=== PATIENT | male | born 1950 | race Caucasian/White ===

== ENCOUNTER → 2017-05-04 | Outpatient (CLI) | payer MEDICARE, OTHER ==
[~2017-05-04] MED LIST: ASPIRIN 81MG TA81 MG PO; ASPIRIN CHILDRE81 MG PO; BENZONATATE100 MG PO; CRESTOR10 MG PO; DOXAZOSIN 4MG TA4 MG PO; FLOMAX 0.4MG C0.4 MG PO; FOLIC ACID 1MG T1 MG PO; MECLICOT25 MG PO; METOPROLOL 25 M25 MG PO; NABUMETONE500 M1 PO; PERCOCET 10 MG1 EACH PO; PERCOCET 5/3251 EACH PO; RELAFEN500 MG PO; TOPROL XL50 MG PO; TREXALL10 MG PO; UROXATRAL10 MG PO
[2017-05-04 17:10] LABS: BUN 16 mg/dL (7-18); PROSTATE-SPECIFIC AG SCREEEN 1.7 ng/mL (0.0-4.0)
[2017-05-04 17:58] LABS: GFR (ESTIMATED) 75 ML/MIN (>60)
== END ==
LOC: LAB 13:10
PROVIDERS: Urology
DX: R31.9 Hematuria, unspecified (principal); N40.0 Benign prostatic hyperplasia without lower urinary tract symptoms; Z12.5 Encounter for screening for malignant neoplasm of prostate
CPT/HCPCS: G0103

== ENCOUNTER → 2017-06-29 | Outpatient (CLI) | payer MEDICARE, OTHER ==
[2017-06-29 17:03] LABS: BUN 16 mg/dL (7-18)
[2017-06-29 17:06] LABS: GFR (ESTIMATED) 67 ML/MIN (>60)
[2017-06-29 18:20] LABS: HEMOGLOBIN 14.4 g/dL (14.1-18.0)
[2017-06-29 18:21] LABS: LYMPH # 0.9 K/mm3 (0.7-4.5); LYMPH % 11.6 % (10-50)
--- NOTE | 2017-06-29 21:22 | RADIOLOGY REPORT PS360 ---
CHEST(2 VIEWS-NOT PORTABLE) COMPARISON: PA and lateral chest 12/09/2015 HISTORY: Fever chills, wheezing, immunosuppressed TECHNIQUE: PA and lateral chest FINDINGS: The lung mcclain are well expanded and appear clear of active infiltrate. There is no pleural fluid. There are sternal wire sutures noted. There is borderline cardio megaly without failure. There are mild degenerative changes of the lower thoracic spine. IMPRESSION: Nonacute chest findings
== END ==
LOC: LAB 16:30
PROVIDERS: Nurse Practitioner Family
DX: R50.9 Fever, unspecified (principal); D89.9 Disorder involving the immune mechanism, unspecified

== ENCOUNTER 2017-06-30 09:33 | Inpatient (IN) | payer MEDICARE, OTHER ==
[~2017-06-30] VITALS: Ht 182.9 cm; Wt 113.5 kg
[2017-06-30 12:45] LABS: HEMOGLOBIN 14.2 g/dL (14.1-18.0); LYMPH # 1.6 K/mm3 (0.7-4.5); LYMPH % 17.2 % (10-50)
[2017-06-30 12:47] LABS: BUN 17 mg/dL (7-18)
[2017-06-30] MEDS ORDERED: PERCOCET 10 MG1 EACH PO (12:49)
[2017-06-30] MEDS ORDERED: ZYRTEC ALLERGY10 MG PO (12:53)
[2017-06-30 12:55] LABS: GFR (ESTIMATED) 75 ML/MIN (>60)
--- NOTE | 2017-06-30 12:56 | CONSULT NOTE ---
Pharmacokinetic Consult Date of consult: 06/30/17 Time of consult: 8551 Referring provider: DR. MARTELL Reason for consult: VANCOMYCIN DOSING Allergies: Coded Allergies: Sulfa (Sulfonamide Antibiotics) (Mild, 01/16/16) Home Medications: Reported Medications FOLIC ACID (Folic Acid) 1 MG PO DAILY Metoprolol Tartrate (Metoprolol 25MG) 50 MG PO BID NABUMETONE (NABUMETONE 500MG TAB) 1,000 MG PO DAILY TAMSULOSIN HCL (Flomax 0.4MG) 0.4 MG PO BID Oxycodone 10 Mg\Jwdrdgbdrc902 (Oxycodone-Acetaminophen 10-325) 1 TAB PO BIDP PRN PAIN Cetirizine Hcl (Zyrtec) 10 MG PO DAILY Rosuvastatin Calcium (Crestor) 10 MG PO QHS Methotrexate Sodium (Trexall) 25 MG PO SUN ASPIRIN (Aspirin) 81 MG PO DAILY Height (feet): 6 Height (inches): 0.00 Medical History: CAD? No Angina: Yes [place]: No Hypertension? Yes Hyperlipidemia? Yes CHF? No COPD? No Asthma? No Anemia? No Hernia? No Thyroid Problems? No Hypothyroidism? No CVA? No Seizures? No Diabetes? No UTI? No Stones? Yes GB Disease: Yes Nephritic Syndrome? No Asplenia? No Hepatitis? No Sickle Cell Disease? No Arthritis? Yes Cataracts? No Glaucoma? No MRSA? No TB? No Cancer? No Labs: Laboratory Tests 06/30/17 1230: WBC 9.5, RBC 4.54 L, Hgb 14.2, Hct 43.2, MCV 95.1, RDW 13.4, Plt Count 268, MPV 7.9, Gran % 74.1, Gran # 7.0, Lymphocytes % 17.2, Monocytes % 7.4, Eosinophils % 0.8, Basophils % 0.6, Lymphocytes # 1.6, Monocytes # 0.7, Eosinophils # 0.1, Basophils # 0.1, PUBS MCHC 32.9, MCH 31.3 H Plan: BASED ON PATIENT FACTORS, RECOMMEND INITIATING VANCOMYCIN AT 2,000MG IV Q18H. PHARMACY WILL OBTAIN A TROUGH LEVEL PRIOR TO THE FOURTH DOSE. at 0892
--- NOTE | 2017-06-30 12:56 | CONSULT NOTE ---
Pharmacokinetic Consult Date of consult: 06/30/17 Time of consult: 7672 Referring provider: DR. MARTELL Reason for consult: VANCOMYCIN DOSING Allergies: Coded Allergies: Sulfa (Sulfonamide Antibiotics) (Mild, 01/16/16) Home Medications: Reported Medications FOLIC ACID (Folic Acid) 1 MG PO DAILY Metoprolol Tartrate (Metoprolol 25MG) 50 MG PO BID NABUMETONE (NABUMETONE 500MG TAB) 1,000 MG PO DAILY TAMSULOSIN HCL (Flomax 0.4MG) 0.4 MG PO BID Oxycodone 10 Mg\Jzgcvusekd054 (Oxycodone-Acetaminophen 10-325) 1 TAB PO BIDP PRN PAIN Cetirizine Hcl (Zyrtec) 10 MG PO DAILY Rosuvastatin Calcium (Crestor) 10 MG PO QHS Methotrexate Sodium (Trexall) 25 MG PO SUN ASPIRIN (Aspirin) 81 MG PO DAILY Height (feet): 6 Height (inches): 0.00 Medical History: CAD? No Angina: Yes [place]: No Hypertension? Yes Hyperlipidemia? Yes CHF? No COPD? No Asthma? No Anemia? No Hernia? No Thyroid Problems? No Hypothyroidism? No CVA? No Seizures? No Diabetes? No UTI? No Stones? Yes GB Disease: Yes Nephritic Syndrome? No Asplenia? No Hepatitis? No Sickle Cell Disease? No Arthritis? Yes Cataracts? No Glaucoma? No MRSA? No TB? No Cancer? No Labs: Laboratory Tests 06/30/17 1230: WBC 9.5, RBC 4.54 L, Hgb 14.2, Hct 43.2, MCV 95.1, RDW 13.4, Plt Count 268, MPV 7.9, Gran % 74.1, Gran # 7.0, Lymphocytes % 17.2, Monocytes % 7.4, Eosinophils % 0.8, Basophils % 0.6, Lymphocytes # 1.6, Monocytes # 0.7, Eosinophils # 0.1, Basophils # 0.1, PUBS MCHC 32.9, MCH 31.3 H Plan: BASED ON PATIENT FACTORS, RECOMMEND INITIATING VANCOMYCIN AT 2,000MG IV Q18H. PHARMACY WILL OBTAIN A TROUGH LEVEL PRIOR TO THE FOURTH DOSE. at 7344
[2017-06-30 12:57] VITALS: BP 122/73
[2017-06-30 13:14] VITALS: BP 122/73
[2017-06-30 14:10] LABS: URINE BLOOD NEGATIVE (NEG)
[2017-06-30 14:20] LABS: URINE BILIRUBIN - DIPSTICK NEGATIVE (NEG)
[2017-06-30 14:21] LABS: URINE SQUAMOUS CELLS OCC #/hpf (OCC)
[2017-06-30 16:32] VITALS: BP 136/71
[2017-06-30 19:40] VITALS: BP 136/71
[2017-06-30 20:00] VITALS: BP 128/68
--- NOTE | 2017-06-30 21:49 | HISTORY AND PHYSICAL REPORT ---
Demographics: Admit date: 06/30/17 Chief complaint: Fevers PRIMARY DIAGNOSIS: BACTREMIA Allergies: Coded Allergies: Sulfa (Sulfonamide Antibiotics) (Mild, 01/16/16) History of present illness: History of present illness: 66 yr old male seen yesterday in our clinic with c/o recurring fevers over the past 7-10 days. Typically during the night, Tmax 102.7. He feels fatigued with general malaise during fevers and c/o rhinorrhea consistent with his usual allergy symptoms but otherwise without acute symptoms. Recent history also notable for cystoscopy about [address] Briscoe, initially planned due to nephrolithiasis but stones had already passed prior to procedure. CXR and blood work were obtained due to fevers and immunosuppression on chronic methotrexate therapy for psoriasis. This morning blood cultures are preliminarily positive for enterococcus and he is admitted to initiate IV antibiotics and additional workup. Past medical history: Family HX Diabetes Yes CAD Yes Hypertension Yes Hyperlipidemia Yes Cancer Yes TB No Immunization HX DT/Tetanus > 10 YRS Flu 06/16/17 Pneumonia 2016 Other REACTIVE TB TEST TB Test in last year No General CAD? Yes Angina: Yes [place]: No Hypertension? Yes Hyperlipidemia? Yes CHF? No COPD? No Asthma? No Anemia? No Hernia? No Thyroid Problems? No Hypothyroidism? No CVA? No Seizures? No Diabetes? No UTI? No Stones? Yes GB Disease: Yes Nephritic Syndrome? No Asplenia? No Hepatitis? No Sickle Cell Disease? No Arthritis? Yes Cataracts? No Glaucoma? No MRSA? No TB? No Cancer? No Additional hx: chronic pain. psoriasis on chronic MTX therapy Past Surgical HX Previous Surgery?Y CABG X3 R KNEE SURGERY GALLBLADDER REMOVED [facility] C[facility] 12/2014 Current home meds: Reported Medications FOLIC ACID (Folic Acid) 1 MG PO DAILY Metoprolol Tartrate (Metoprolol 25MG) 50 MG PO BID NABUMETONE (NABUMETONE 500MG TAB) 1,000 MG PO DAILY TAMSULOSIN HCL (Flomax 0.4MG) 0.4 MG PO BID Oxycodone 10 Mg\Pyjmwirsqb002 (Oxycodone-Acetaminophen 10-325) 1 TAB PO BIDP PRN PAIN Cetirizine Hcl (Zyrtec) 10 MG PO DAILY Rosuvastatin Calcium (Crestor) 10 MG PO QHS Methotrexate Sodium (Trexall) 25 MG PO SUN ASPIRIN (Aspirin) 81 MG PO DAILY Social Hx: Smoking HX Tobacco No Alcohol Alcohol: No Hx of Drug Use Drug Use? No Patien't marital status is Patient's support system is excellent Review of systems: Constitutional fever, malaise. Eyes No: no symptoms reported. Ears, Nose, Mouth, Throat nose congestion, No throat pain, No throat swelling Respiratory cough (occasional). No: shortness of breath, wheezing. Cardiovascular No no symptoms reported Gastrointestinal/Abdominal No no symptoms reported Genitourinary see HPI. No: dysuria, frequency. Musculoskeletal back pain (chronic, on narcotics). Skin rash (psoriasis). Neurological No: no symptoms reported. Psychiatric No: no symptoms reported. Exam: Lab data for last 24 hours: Laboratory Tests 06/30/17 1330: Urine Color DK YELLOW, Urine Appearance SL CLOUDY, Urine pH 5.5, Ur Specific [place] >= 1.030, Urine Protein 1+ H, Urine Ketones TRACE H, Urine Blood NEGATIVE, Urine Nitrate NEGATIVE, Urine Bilirubin NEGATIVE, Urine Urobilinogen 4.0, Ur Leukocyte Esterase NEGATIVE, Urine RBC NONE, Urine WBC NONE, Ur Squamous Epith Cells OCC, Urine Bacteria OCC, Urine Mucus 4+, Urine Glucose NEGATIVE 06/30/17 1230: Sodium 138, Potassium 4.1, Chloride 105, Carbon Dioxide 26, BUN 17, Creatinine 1.0, Estimated GFR (MDRD) 75, Glucose 104, Calcium 9.0, WBC 9.5, RBC 4.54 L, Hgb 14.2, Hct 43.2, MCV 95.1, RDW 13.4, Plt Count 268, MPV 7.9, Gran % 74.1, Gran # 7.0, Lymphocytes % 17.2, Monocytes % 7.4, Eosinophils % 0.8, Basophils % 0.6, Lymphocytes # 1.6, Monocytes # 0.7, Eosinophils # 0.1, Basophils # 0.1, PUBS MCHC 32.9, MCH 31.3 H Microbiology 06/30 1330 URINE CC: Urine Culture - RECD Admission vital signs: 1ST Vital Signs Result Date Time Pulse Ox 97 06/30 1257 O2 Delivery ROOM AIR 06/30 1257 B/P 122/73 06/30 1257 Temp 97.8 06/30 1257 Pulse 63 06/30 1257 Resp 22 06/30 1257 Additional information: Pleasant male in NAD. Neck supple without masses, mild nasal congestion with clear rhinorrhea, POP and TMs normal. Heart with RRR. Lungs with expiratory wheeze in the right base, no rales or rhonchi. Abdomen obese, soft, NT/ND, BS present, no CVA tenderness. No edema. Psoriatic plaques noted. Alert and oriented x 3 without deficits. Plan: Problem List 1. Bacteremia due to Enterococcus Assessment/Plan Most likely secondary to recent bladder instumentation and nephrolithiasis. UA with culture today. Initiate therapy with vancomycin and ceftriaxone until sensitivities available. CXR negative for acute findings. CBC and CMP unremarkable. Echo given his + blood cultures, CABG history and immunosuppressed state. 2. Immunosuppressed status 3. Fever 4. Ureteral calculus, left Plan: see above at 6332
[2017-07-01 04:08] VITALS: BP 124/56
[2017-07-01 06:55] LABS: HEMOGLOBIN 12.8 g/dL (14.1-18.0); LYMPH # 1.7 K/mm3 (0.7-4.5); LYMPH % 19.1 % (10-50)
--- NOTE | 2017-07-01 07:17 | PHARMACY CLINIC NOTE ---
Patient Demographics Patient Demographics Admission date: 06/30/17 Date: 07/01/17 Time: 0716 Allergies Coded Allergies: Sulfa (Sulfonamide Antibiotics) (Mild, 01/16/16) HEIGHT- FT: 6 IN: 0.00 K.541 VTE General Information Labs: Laboratory Tests 07/0115 1230 Hematology Hgb (14.1 - 18.0 g/dL) 12.8 L 14.2 Hct (42.0 - 52.0 %) 38.0 L 43.2 Plt Count (142 - 424 K/mm3) 245 268 Disclaimer The following section includes nursing documentation that has been pulled in for pharmacy review. Patient's VTE score: 2 Patient's VTE Risk: VERY LOW RISK Clinical trial participant? No VTE prophylaxis NQF [id number] VTE prophylaxis ordered? Yes Type of prophylaxis/treatment: DON at 0716
[2017-07-01 08:10] VITALS: BP 133/62
--- NOTE | 2017-07-01 08:45 | ACUTE CARE PROGRESS NOTE (QUA) ---
Progress Notes Subjective Date 07/01/17 Time 0745 Note Patient is sitting up in the chair without any complaints this morning. No fevers through the night. He denies any urinary symptoms. Alert and oriented 3. Rate and rhythm regular. No lower extremity edema. Pulses 2+ bilaterally. Lung sounds clear and equal throughout. Abdomen soft and nontender, normoactive bowel sounds. No CVA tenderness Patient/family reports: feeling better Nursing reports: no complaints Objective Findings Last VS-Temp:98.1 B/P:133/62 Pulse:68 Resp:18 SaO2:95 ROOM AIR Last weight lbs:250 oz:5 K.541 Method:Bed Scales Reviewed: medications, vital signs, lab results Assessment/Plan Problem List 1. Bacteremia due to Enterococcus 2. Immunosuppressed status 3. Fever 4. Ureteral calculus, left Patient condition Improving Plan: continue current care This inpt stay is expected to cross 2 MNs from start of care Yes Comments: Place PICC line today. Continue IV Vancomycin and Rocephin pending sensitivity. at 0845
[2017-07-01 09:22] VITALS: BP 133/62
--- NOTE | 2017-07-01 14:52 | RADIOLOGY REPORT PS360 ---
CHEST PORTABLE-P ICC PLACEMENT COMPARISON: PA and lateral chest 06/29/2017 HISTORY: PICC line placement TECHNIQUE: Portable upright chest FINDINGS: The PICC line is seen ascending the left axillary vein and left subclavian vein and the tip is at the junction of the innominate vein with superior vena cava. There is no pneumothorax. Stable generalized cardio megaly is again noted. IMPRESSION: Aspect. Position of PICC line
[2017-07-01 16:15] VITALS: BP 137/70
--- NOTE | 2017-07-01 16:44 | RADIOLOGY REPORT PS360 ---
PROCEDURE: 2-D M-mode and color Doppler study INDICATIONS FOR THE TEST: Chest pain COPD Heart Murmur Tobacco Smoking Palpitations Fatigue Syncope Edema Hypertension+Diabetes Mellitus+ Rheumatic Fever SOB+GRAMAJO Obesity Hyperlipidemia+ Family History HD Additional History CABG 2005 X3 PATIENT INFORMATION HEIGHT:72 WEIGHT:260 GENDER: Male B/P:140/82 2-D/M-MODE INTERPRETATION: 2-D MEASUREMENTS OBSERVED VALUES IN CMS Right Ventricular Dimension (RVDd) 3.5 Interventricular Septum (Thickness)(IVsd) 1.4 Left Ventricular Internal Dimensions(LVIDd) 5.2 Left Ventricular Posterior Wall (Thickness)(LVPWd) 1.1 Aortic Root 3.4 Aortic Cusp Separation 2.4 Left Atrial Dimensions (LAD) 4.2 2D 1. Technically difficult study because of the patient's factor and poor acoustic windows, endocardial surface of poorly visualized, a repeat study with Definity contrast is recommended. 2. Left atrium is mildly enlarged, left ventricle is normal size, mild concentric left ventricular hypertrophy, visually estimated ejection fraction is probably 45%, endocardial surface are poorly visualized, there appears to be hypokinesis involving mid to distal septum and apical wall. 3. The right atrium is mildly enlarged, right ventricle is moderately dilated with normal contractility. 4. The aortic valve is minimally thickened and fibrosed. 5. The mitral and tricuspid valve leaflets are minimally thickened. 6. The pulmonic valve is poorly visualized. 7. No significant pericardial effusion noted. DOPPLER INTERROGATION: Doppler interrogation of the aortic, mitral and tricuspid valve reveals presence of mild mitral and tricuspid regurgitation, tricuspid and jet velocity insufficient for calculation of the right ventricular systolic pressure, grade 1 diastolic dysfunction seen with tissue Doppler evidence of raised left atrial pressure. CONCLUSION: 1. Biatrial enlargement, normal left ventricular size, mild concentric left ventricular hypertrophy, visually estimated ejection fraction 45% with segmental wall motion abnormality described above, endocardial surface of poorly visualized, a repeat study with Definity contrast is recommended. Grade 1 diastolic dysfunction seen with tissue Doppler evidence of raised left atrial pressure. 2. Moderately enlarged right ventricle with normal contractility. 3. Mild mitral and tricuspid regurgitation. 4. No significant pericardial effusion noted
[2017-07-01 20:30] VITALS: BP 158/77
[2017-07-02 04:01] VITALS: BP 126/79
--- NOTE | 2017-07-02 07:27 | DISCHARGE SUMMARY STANDARD ---
Demographics Admit date: 06/30/17 Discharge date: 07/02/17 History of present illness History of present illness 66 yr old male seen yesterday in our clinic with c/o recurring fevers over the past 7-10 days. Typically during the night, Tmax 102.7. He feels fatigued with general malaise during fevers and c/o rhinorrhea consistent with his usual allergy symptoms but otherwise without acute symptoms. Recent history also notable for cystoscopy about [address] Briscoe, initially planned due to nephrolithiasis but stones had already passed prior to procedure. CXR and blood work were obtained due to fevers and immunosuppression on chronic methotrexate therapy for psoriasis. This morning blood cultures are preliminarily positive for enterococcus and he is admitted to initiate IV antibiotics and additional workup. Hospital Course Hospital Course: Patient was admitted, did very nicely. Blood cultures showed enterococcus. We waited sensitivity panels which, fortunately, showed good sensitivity to vancomycin. Patient had a PICC line placed in the LEFT antecubital fossa with good placement confirmed by chest x-ray. Interestingly urine culture also showed greater than 100,000 colonies of gram- positive cocci-this would seem to be the source of the sepsis, but sensitivity panels are pending for this organism. The patient did very nicely with his antibiotics. Defervesced. This morning is doing fine, eating breakfast vigorously. Lungs are clear, heart rate regular, no edema. He will be discharged home with his daily orders to come back to her infusion department for vancomycin 2.5 g daily through July 14. We will see him the following day for reevaluation. Discharge diagnoses Problem List 1. Bacteremia due to Enterococcus 2. Immunosuppressed status 3. Fever 4. Ureteral calculus, left Medications Medications: Discharge meds are as noted. Follow up Follow up in office in: 12 DAYS with: Chante Sahu APRN at 6900
[2017-07-02] MEDS ORDERED: AMERINET CHOICE1 G1 IV (07:28)
[2017-07-02 08:40] VITALS: BP 145/78
[2017-07-02 08:47] VITALS: BP 145/78
[2017-07-02 10:10] VITALS: BP 145/78
[2017-07-02 10:12] VITALS: BP 145/78
--- OUTSIDE RECORDS SUMMARY | 2017-07-08 13:58 | External Medical Summary Rpt | CCD ---
Author Author [employer] Organization [employer] Address Unknown Phone Unavailable Purpose Continuity of Care Document - through 2016
--- OUTSIDE RECORDS SUMMARY | 2017-07-08 13:58 | External Medical Summary Rpt ---
Author Author NURIA Corbin, [employer] Organization [employer] Address Unknown Phone Unavailable Results Basic metabolic panel in Blood Observa Value Referen Units Interpr Notes Date tion ce etation Range Urea 7 - 18 mg/dL Normal No Oct 5 nitrogen informati 2017 6:15 [Mass/vol on in AM ume] in source Serum or data Plasma Calcium 8.5 - mg/dL Normal No Oct 5 [Mass/vol 10.1 informati 2017 6:15 ume] in on in AM Serum or source Plasma data Chloride 98 - 107 mmoL/L Normal No Oct 5 [Moles/vo informati 2017 6:15 lume] in on in AM Serum or source Plasma data Carbon 21.0 - mmoL/L Normal No Oct 5 dioxide, 32.0 informati 2017 6:15 total on in AM [Moles/vo source lume] in data Serum or Plasma Creatinin 0.70 - mg/dL Normal No Oct 5 e 1.30 informati 2017 6:15 [Mass/vol on in AM ume] in source Serum or data Plasma Creatinin 50 - 200 ML/MIN Normal No Oct 5 e renal informati 2017 6:15 clearance on in AM source predicted data by Cockcroft -Gault formula Estimated >60 ML/MIN No REFERENCE Oct 5 informati RANGE: 2017 6:15 glomerula on in >60 AM r source ML/MIN/1. filtratio data 73 SQUARE n rate METERSIf (GF this patient is -A merican, then multiply theresult by 1.210. Glucose 74 - 106 mg/dL High No Oct 5 [Mass/vol informati 2017 6:15 ume] in on in AM Serum or source Plasma data Potassium 3.5 - 5.1 mmoL/L Normal No Oct 5 informati 2017 6:15 [Moles/vo on in AM lume] in source Serum or data Plasma Sodium 136 - 145 mmoL/L Normal No Oct 5 [Moles/vo informati 2017 6:15 lume] in on in AM Serum or source Plasma data CBC W Auto Differential panel in Blood Observa Value Referen Units Interpr Notes Date tion ce etation Range Basophils 0 - 0.2 K/MM3 Normal No Jul 01 informati 2016 6:15 [#/volume on in AM ] in source Blood by data Automated count Basophils 0.1 - 2.0 % Normal No Jul 01 /100 informati 2016 6:15 leukocyte on in AM s in source Blood by data Automated count Eosinophi 0.0 - 0.4 K/mm3 Normal No Jul 01 ls informati 2016 6:15 [#/volume on in AM ] in source Blood by data Automated count Eosinophi 0.1 - % Normal No Jul 01 ls/100 12.0 informati 2016 6:15 leukocyte on in AM s in source Blood by data Automated count Granulocy 1.3 - 8.0 K/mm3 Normal No Jul 01 cruz informati 2016 6:15 [#/volume on in AM ] in source Blood by data Automated count Granulocy 37.0 - % Normal No Jul 01 cruz/100 80.0 informati 2016 6:15 leukocyte on in AM s in source Blood by data Automated count Hematocri 42.0 - % Low No Jul 01 t [Volume 52.0 informati 2016 6:15 on in AM Fraction] source of Blood data Hemoglobi 14.1 - g/dL Low No Jul 01 n 18.0 informati 2016 6:15 [Mass/vol on in AM ume] in source Blood data Lymphocyt 0.7 - 4.5 K/mm3 Normal No Jul 01 es informati 2016 6:15 [#/volume on in AM ] in source Unspecifi data ed specimen by Automated count Lymphocyt 10 - 50 % Normal No Jul 01 es informati 2016 6:15 [#/volume on in AM ] in source Unspecifi data ed specimen by Automated count Erythrocy 27 - 31.2 pg Normal No Jul 01 te mean informati 2016 6:15 corpuscul on in AM ar source hemoglobi data n [Entitic mass] Erythrocy 31.8 - g/dl Normal No Jul 01 te mean 35.4 informati 2016 6:15 corpuscul on in AM ar source hemoglobi data n concentra tion [Mass/vol ume] by Automated count Erythrocy 82.2 - fl Normal No Jul 01 te mean 97.8 informati 2016 6:15 corpuscul on in AM ar volume source [Entitic data volume] by Automated count Monocytes 0.1 - 1.0 K/mm3 Normal No Jun 5 informati 2016 6:15 [#/volume on in AM ] in source Blood by data Automated count Monocytes 1.7 - 9.3 % Normal No Oct 5 /100 informati 2016 6:15 leukocyte on in AM s in source Blood by data Automated count Platelet 7.4 - fl Normal No Jun 5 mean 10.4 informati 2016 6:15 volume on in AM [Entitic source volume] data in Blood by Automated count Platelets 142 - 424 K/mm3 Normal No Jun 5 informati 2016 6:15 [#/volume on in AM ] in source Blood data Erythrocy 4.6 - 6.2 M/mm3 Low No Jun 5 cruz informati 2016 6:15 [#/volume on in AM ] in source Amniotic data fluid Erythrocy 11.5 - % Normal No Jun 5 te 17.5 informati 2016 6:15 distribut on in AM ion width source [Entitic data volume] by Automated count Leukocyte 4.8 - K/MM3 Normal No Jun 5 s 10.8 informati 2016 6:15 [#/volume on in AM ] in source Blood data Basic metabolic panel in Blood Observa Value Referen Units Interpr Notes Date tion ce etation Range Urea 7 - 18 mg/dL Normal No Jun 4 nitrogen informati 2016 [Mass/vol on in 12:30 PM ume] in source Serum or data Plasma Calcium 8.5 - mg/dL Normal No Jun 4 [Mass/vol 10.1 informati 2016 ume] in on in 12:30 PM Serum or source Plasma data Chloride 98 - 107 mmoL/L Normal No Jun 4 [Moles/vo informati 2017 lume] in on in 12:30 PM Serum or source Plasma data Carbon 21.0 - mmoL/L Normal No Jun 4 dioxide, 32.0 informati 2016 total on in 12:30 PM [Moles/vo source lume] in data Serum or Plasma Creatinin 0.70 - mg/dL Normal No Jun 4 e 1.30 informati 2016 [Mass/vol on in 12:30 PM ume] in source Serum or data Plasma Estimated >60 ML/MIN No REFERENCE Oct 4 informati RANGE: 2017 glomerula on in >60 12:30 PM r source ML/MIN/1. filtratio data 73 SQUARE n rate METERSIf (GF this patient is -A merican, then multiply theresult by 1.210. Glucose 74 - 106 mg/dL Normal No Jun 30 [Mass/vol informati 2016 ume] in on in 12:30 PM Serum or source Plasma data Potassium 3.5 - 5.1 mmoL/L Normal No Jun 30 inform2016 [Moles/vo on in 12:30 PM lume] in source Serum or data Plasma Sodium 136 - 145 mmoL/L Normal No Jun 30 [Moles/vo informati 2016 lume] in on in 12:30 PM Serum or source Plasma data CBC W Auto Differential panel in Blood Observa Value Referen Units Interpr Notes Date tion ce etation Range Basophils 0 - 0.2 K/MM3 Normal No Jun 302016 [#/volume on in 12:30 PM ] in source Blood by data Automated count Basophils 0.1 - 2.0 % Normal No Jun 30 /2016 leukocyte on in 12:30 PM s in source Blood by data Automated count Eosinophi 0.0 - 0.4 K/mm3 Normal No Jun 30 ls 2016 [#/volume on in 12:30 PM ] in source Blood by data Automated count Eosinophi 0.1 - % Normal No Jun 30 ls/100 12.0 inform2016 leukocyte on in 12:30 PM s in source Blood by data Automated count Granulocy 1.3 - 8.0 K/mm3 Normal No Jun 30 cruz inform2016 [#/volume on in 12:30 PM ] in source Blood by data Automated count Granulocy 37.0 - % Normal No Jun 30 cruz/100 80.0 inform2016 leukocyte on in 12:30 PM s in source Blood by data Automated count Hematocri 42.0 - % Normal No Jun 30 t [Volume 52.0 ati 2016 on in 12:30 PM Fraction] source of Blood data Hemoglobi 14.1 - g/dL Normal No Jun 30 n 18.0 inform2016 [Mass/vol on in 12:30 PM ume] in source Blood data Lymphocyt 0.7 - 4.5 K/mm3 Normal No Jun 30 es inform2016 [#/volume on in 12:30 PM ] in source Unspecifi data ed specimen by Automated count Lymphocyt 10 - 50 % Normal No Jun 30 es 2016 [#/volume on in 12:30 PM ] in source Unspecifi data ed specimen by Automated count Erythrocy 27 - 31.2 pg High No Jun 30 te mean 2016 corpuscul on in 12:30 PM ar source hemoglobi data n [Entitic mass] Erythrocy 31.8 - g/dl Normal No Jun 30 te mean 35.4 2016 corpuscul on in 12:30 PM ar source hemoglobi data n concentra tion [Mass/vol ume] by Automated count Erythrocy 82.2 - fl Normal No Jun 30 te mean 97.8 2016 corpuscul on in 12:30 PM ar volume source [Entitic data volume] by Automated count Monocytes 0.1 - 1.0 K/mm3 Normal No Jun 302016 [#/volume on in 12:30 PM ] in source Blood by data Automated count Monocytes 1.7 - 9.3 % Normal No Jun 302016 leukocyte on in 12:30 PM s in source Blood by data Automated count Platelet 7.4 - fl Normal No Jun 30 mean 10.4 2016 volume on in 12:30 PM [Entitic source volume] data in Blood by Automated count Platelets 142 - 424 K/mm3 Normal No Jun 302016 [#/volume on in 12:30 PM ] in source Blood data Erythrocy 4.6 - 6.2 M/mm3 Low No Jun 30 cruz 2016 [#/volume on in 12:30 PM ] in source Amniotic data fluid Erythrocy 11.5 - % Normal No Jun 30 te 17.5 2016 distribut on in 12:30 PM ion width source [Entitic data volume] by Automated count Leukocyte 4.8 - K/MM3 Normal No Jun 30 s 10.8 2016 [#/volume on in 12:30 PM ] in source Blood data CBC W Auto Differential panel in Blood Observa Value Referen Units Interpr Notes Date tion ce etation Range Basophils 0 - 0.2 K/MM3 Normal No Jun 3 2016 4:32 [#/volume on in PM ] in source Blood by data Automated count Basophils 0.1 - 2.0 % Normal No Jun 29 /100 inform2016 4:32 leukocyte on in PM s in source Blood by data Automated count Eosinophi 0.0 - 0.4 K/mm3 Normal No Jun 3 ls informati 2016 4:32 [#/volume on in PM ] in source Blood by data Automated count Eosinophi 0.1 - % Normal No Jun 3 ls/100 12.0 informati 2016 4:32 leukocyte on in PM s in source Blood by data Automated count Granulocy 1.3 - 8.0 K/mm3 Normal No Jun 3 cruz informati 2016 4:32 [#/volume on in PM ] in source Blood by data Automated count Granulocy 37.0 - % High No Jun 29 cruz/100 80.0 informati 2016 4:32 leukocyte on in PM s in source Blood by data Automated count Hematocri 42.0 - % Normal No Jun 29 t [Volume 52.0 informati 2016 4:32 on in PM Fraction] source of Blood data Hemoglobi 14.1 - g/dL Normal No Jun 3 n 18.0 informati 2016 4:32 [Mass/vol on in PM ume] in source Blood data Lymphocyt 0.7 - 4.5 K/mm3 Normal No Jun 29 es informati 2016 4:32 [#/volume on in PM ] in source Unspecifi data ed specimen by Automated count Lymphocyt 10 - 50 % Normal No Jun 29 es informati 2016 4:32 [#/volume on in PM ] in source Unspecifi data ed specimen by Automated count Erythrocy 27 - 31.2 pg Normal No Jun 29 te mean informati 2016 4:32 corpuscul on in PM ar source hemoglobi data n [Entitic mass] Erythrocy 31.8 - g/dl Low No Jun 29 te mean 35.4 informati 2016 4:32 corpuscul on in PM ar source hemoglobi data n concentra tion [Mass/vol ume] by Automated count Erythrocy 82.2 - fl Normal No Jun 29 te mean 97.8 informati 2016 4:32 corpuscul on in PM ar volume source [Entitic data volume] by Automated count Monocytes 0.1 - 1.0 K/mm3 Normal No Jun 3 informati 2016 4:32 [#/volume on in PM ] in source Blood by data Automated count Monocytes 1.7 - 9.3 % Normal No Jun 3 /100 informati 2016 4:32 leukocyte on in PM s in source Blood by data Automated count Platelet 7.4 - fl Normal No Jun 3 mean 10.4 informati 2017 4:32 volume on in PM [Entitic source volume] data in Blood by Automated count Platelets 142 - 424 K/mm3 Normal No Oct 3 informati 2016 4:32 [#/volume on in PM ] in source Blood data Erythrocy 4.6 - 6.2 M/mm3 Normal No Oct 3 cruz informati 2016 4:32 [#/volume on in PM ] in source Amniotic data fluid Erythrocy 11.5 - % Normal No Oct 3 te 17.5 informati 2016 4:32 distribut on in PM ion width source [Entitic data volume] by Automated count Leukocyte 4.8 - K/MM3 Normal No Oct 3 s 10.8 informati 2017 4:32 [#/volume on in PM ] in source Blood data Comprehensive metabolic 2000 panel in Serum or Plasma Observa Value Referen Units Interpr Notes Date tion ce etation Range Albumin/G 1.1 - 1.8 No Low No Oct 3 lobulin informati informati 2017 4:32 [Mass on in on in PM ratio] in source source Serum or data data Plasma Albumin 3.4 - 5.0 gm/dL Normal No Oct 3 [Mass/vol informati 2017 4:32 ume] in on in PM Serum or source Plasma data Alkaline 46 - 116 U/L Normal No Oct 3 phosphata informati 2017 4:32 se on in PM [Enzymati source c data activity/ volume] in Serum or Plasma Bilirubin 0.2 - 1.0 mg/dL Normal No Oct 3 .total informati 2017 4:32 [Mass/vol on in PM ume] in source Serum or data Plasma Urea 7 - 18 mg/dL Normal No Oct 3 nitrogen informati 2016 4:32 [Mass/vol on in PM ume] in source Serum or data Plasma Calcium 8.5 - mg/dL Normal No Oct 3 [Mass/vol 10.1 informati 2017 4:32 ume] in on in PM Serum or source Plasma data Chloride 98 - 107 mmoL/L Normal No Oct 3 [Moles/vo informati 2017 4:32 lume] in on in PM Serum or source Plasma data Carbon 21.0 - mmoL/L Normal No Oct 3 dioxide, 32.0 informati 2017 4:32 total on in PM [Moles/vo source lume] in data Serum or Plasma Creatinin 0.70 - mg/dL Normal No Oct 3 e 1.30 informati 2017 4:32 [Mass/vol on in PM ume] in source Serum or data Plasma Estimated >60 ML/MIN No REFERENCE Jun 3 informati RANGE: 2017 4:32 glomerula on in >60 PM r source ML/MIN/1. filtratio data 73 SQUARE n rate METERSIf (GF this patient is -A merican, then multiply theresult by 1.210. Globulin 1.3 - 3.2 gm/dL High No Jun 3 [Mass/vol informati 2016 4:32 ume] in on in PM Serum source data Glucose 74 - 106 mg/dL High No Jun 3 [Mass/vol informati 2016 4:32 ume] in on in PM Serum or source Plasma data Potassium 3.5 - 5.1 mmoL/L Normal K RESULT Jun 29 MAY BE 2016 4:32 [Moles/vo SLIGHTLY PM lume] in ELEVATED Serum or DUE TO 2+ Plasma HEMOLYSIS Sodium 136 - 145 mmoL/L Normal No Jun 3 [Moles/vo informati 2016 4:32 lume] in on in PM Serum or source Plasma data Aspartate 15 - 37 U/L Normal AST Jun 29 RESULT 2017 4:32 aminotran MAY BE PM sferase SLIGHTLY [Enzymati ELEVATED c DUE TO 2+ activity/ volume] HEMOLYSIS in Serum or Plasma Alanine 12 - 78 U/L Normal No Jun 3 aminotran informati 2016 4:32 sferase on in PM [Enzymati source c data activity/ volume] in Serum or Plasma Protein 6.4 - 8.2 gm/dL Normal No Jun 3 [Mass/vol informati 2016 4:32 ume] in on in PM Serum or source Plasma data Basic metabolic panel in Blood Observa Value Referen Units Interpr Notes Date tion ce etation Range Urea 7 - 18 mg/dL Normal No May 04 nitrogen informati 2016 1:10 [Mass/vol on in PM ume] in source Serum or data Plasma Calcium 8.5 - mg/dL Normal No May 04 [Mass/vol 10.1 informati 2016 1:10 ume] in on in PM Serum or source Plasma data Chloride 98 - 107 mmoL/L Normal No May 04 [Moles/vo informati 2016 1:10 lume] in on in PM Serum or source Plasma data Carbon 21.0 - mmoL/L Normal No May 04 dioxide, 32.0 informati 2016 1:10 total on in PM [Moles/vo source lume] in data Serum or Plasma Creatinin 0.70 - mg/dL Normal No May 04 e 1.30 informati 2017 1:10 [Mass/vol on in PM ume] in source Serum or data Plasma Estimated >60 ML/MIN No REFERENCE May 04 informati RANGE: 2017 1:10 glomerula on in >60 PM r source ML/MIN/1. filtratio data 73 SQUARE n rate METERSIf (GF this patient is -A merican, then multiply theresult by 1.210. Glucose 74 - 106 mg/dL High No May 04 [Mass/vol informati 2016 1:10 ume] in on in PM Serum or source Plasma data Potassium 3.5 - 5.1 mmoL/L Normal No May 04 informati 2016 1:10 [Moles/vo on in PM lume] in source Serum or data Plasma Sodium 136 - 145 mmoL/L Normal No May 04 [Moles/vo informati 2016 1:10 lume] in on in PM Serum or source Plasma data Prostate specific Ag [Mass/volume] in Cerebral spinal fluid Observa Value Referen Units Interpr Notes Date tion ce etation Range Prostate 0.0 - 4.0 ng/mL Normal No May 04 specific informati 2017 1:10 Ag on in PM [Mass/vol source ume] in data Cerebral spinal fluid
--- OUTSIDE RECORDS SUMMARY | 2017-07-08 13:58 | External Medical Summary Rpt | CCD ---
Author Author , NURIA QUIÑONES Address Unknown Phone Purpose Continuity of Care Document - 05-04-2017 through 2016
--- OUTSIDE RECORDS SUMMARY | 2017-07-08 13:58 | External Medical Summary Rpt | CCD ---
Author Author , NURIA QUIÑONES Address Unknown Phone [email or web address] Immunization Name Date Rout CVX Reac Dose Comm Prov Is Faci e tion ent ider Refu lity Give sed n Infl 09-2 0.5 Hist PD20 No PD20 uenz 0-20 mL oric 255 255 a 17 al Quad Info rmat W/Pr ion es - Sour ce Unsp ecif ied Td 03-0 Intr 9 999 Hist H149 No H149 (jaswant 4-19 amus oric lt), 97 cula al r Info adso rmat rbed ion - Sour ce Unsp ecif ied
--- OUTSIDE RECORDS SUMMARY | 2017-07-08 13:58 | External Medical Summary Rpt | CCD ---
Author Author , NURIA QUIÑONES Address Unknown Phone [email or web address] Purpose Continuity of Care Document - 05-04-2017 through 2016
--- OUTSIDE RECORDS SUMMARY | 2017-07-08 13:58 | External Medical Summary Rpt | CCD ---
Author Author , NURIA QUIÑONES Address Unknown Phone [email or web address] Immunization Name Date Rout CVX Reac Dose [...]
== END 2017-07-02 10:50 | disposition home or self-care (01) | DRG 872 ==
LOC: 2ND 09:33
PROVIDERS: Internal Medicine Adolescent Medicine
DX: A41.81 Sepsis due to Enterococcus (principal); I10 Essential (primary) hypertension; L40.9 Psoriasis, unspecified; G89.29 Other chronic pain; I25.10 Atherosclerotic heart disease of native coronary artery without angina pectoris; Z79.899 Other long term (current) drug therapy; Z83.3 Family history of diabetes mellitus; Z82.49 Family history of ischemic heart disease and other diseases of the circulatory system; Z83.49 Family history of other endocrine, nutritional and metabolic diseases; Z80.9 Family history of malignant neoplasm, unspecified; Z95.1 Presence of aortocoronary bypass graft; Z79.82 Long term (current) use of aspirin; Z79.891 Long term (current) use of opiate analgesic; Z87.442 Personal history of urinary calculi
CPT/HCPCS: C1751; J3370

== ENCOUNTER → 2017-07-03 | Outpatient (CLI) | payer MEDICARE, OTHER ==
[~2017-07-03] VITALS: Ht 182.9 cm; Wt 119.3 kg
[~2017-07-03] MED LIST changes: +AMERINET CHOICE1 G1 IV; +ZYRTEC ALLERGY10 MG PO
[2017-07-03 09:45] VITALS: BP 132/71
[2017-07-03 11:46] VITALS: BP 124/62
== END ==
LOC: COP 09:13
DX: A41.9 Sepsis, unspecified organism (principal)
CPT/HCPCS: J3370

== ENCOUNTER 2017-07-04 09:01 | Outpatient (CLI) | payer MEDICARE, OTHER ==
[~2017-07-04] VITALS: Ht 182.9 cm; Wt 117.9 kg
[2017-07-04 09:00] VITALS: BP 115/53
[2017-07-04 12:00] VITALS: BP 133/63
--- NOTE | 2017-07-04 12:27 | CONSULT NOTE ---
Pharmacokinetic Consult Date of consult: 07/04/17 Time of consult: 0586 Referring provider: DR. MARTELL Reason for consult: VANCOMYCIN DOSING Allergies: Coded Allergies: Sulfa (Sulfonamide Antibiotics) (Mild, 01/16/16) Home Medications: Active Scripts VANCOMYCIN HCL (Vancomycin HCl) 2.5 GM IV DAILY #11 PDS Prov: 07/02/17 Reported Medications FOLIC ACID (Folic Acid) 1 MG PO DAILY Metoprolol Tartrate (Metoprolol 25MG) 50 MG PO BID NABUMETONE (NABUMETONE 500MG TAB) 1,000 MG PO DAILY TAMSULOSIN HCL (Flomax 0.4MG) 0.4 MG PO BID Oxycodone 10 Mg\Qfcobjritd338 (Oxycodone-Acetaminophen 10-325) 1 TAB PO BIDP PRN PAIN Cetirizine Hcl (Zyrtec) 10 MG PO DAILY Rosuvastatin Calcium (Crestor) 10 MG PO QHS Methotrexate Sodium (Trexall) 25 MG PO SUN ASPIRIN (Aspirin) 81 MG PO DAILY Height (feet): 6 Height (inches): 0.00 Medical History: CAD? Yes Angina: Yes [place]: No Hypertension? Yes Hyperlipidemia? Yes CHF? No COPD? No Asthma? No Anemia? No Hernia? No Thyroid Problems? No Hypothyroidism? No CVA? No Seizures? No Diabetes? No UTI? No Stones? Yes GB Disease: Yes Nephritic Syndrome? No Asplenia? No Hepatitis? No Sickle Cell Disease? No Arthritis? Yes Cataracts? No Glaucoma? No MRSA? No TB? No Cancer? No Additional hx: chronic pain. psoriasis on chronic MTX therapy Labs: Laboratory Tests 07/04/17 0915: Vancomycin Trough 7.2 Problem List: 1. Bacteremia due to Enterococcus Plan: BASED ON PATIENT FACTORS AND A TROUGH LEVEL TODAY OF 7.2, RECOMMEND CHANGING VANCOMYCIN DOSE TO 1,750MG IV Q12H. WILL OBTAIN TROUGH LEVEL PRIOR TO THE 4TH DOSE ON 07/05/17. PHARMACY WILL CONTINUE TO MONITOR AND ADJUST APPROPRIATE. at 7744
--- NOTE | 2017-07-04 12:27 | CONSULT NOTE ---
Pharmacokinetic Consult Date of consult: 07/04/17 Time of consult: 0745 Referring provider: DR. MARTELL Reason for consult: VANCOMYCIN DOSING Allergies: Coded Allergies: Sulfa (Sulfonamide Antibiotics) (Mild, 01/16/16) Home Medications: Active Scripts VANCOMYCIN HCL (Vancomycin HCl) 2.5 GM IV DAILY #11 PDS Prov: 07/02/17 Reported Medications FOLIC ACID (Folic Acid) 1 MG PO DAILY Metoprolol Tartrate (Metoprolol 25MG) 50 MG PO BID NABUMETONE (NABUMETONE 500MG TAB) 1,000 MG PO DAILY TAMSULOSIN HCL (Flomax 0.4MG) 0.4 MG PO BID Oxycodone 10 Mg\Hunglvjrvh234 (Oxycodone-Acetaminophen 10-325) 1 TAB PO BIDP PRN PAIN Cetirizine Hcl (Zyrtec) 10 MG PO DAILY Rosuvastatin Calcium (Crestor) 10 MG PO QHS Methotrexate Sodium (Trexall) 25 MG PO SUN ASPIRIN (Aspirin) 81 MG PO DAILY Height (feet): 6 Height (inches): 0.00 Medical History: CAD? Yes Angina: Yes [place]: No Hypertension? Yes Hyperlipidemia? Yes CHF? No COPD? No Asthma? No Anemia? No Hernia? No Thyroid Problems? No Hypothyroidism? No CVA? No Seizures? No Diabetes? No UTI? No Stones? Yes GB Disease: Yes Nephritic Syndrome? No Asplenia? No Hepatitis? No Sickle Cell Disease? No Arthritis? Yes Cataracts? No Glaucoma? No MRSA? No TB? No Cancer? No Additional hx: chronic pain. psoriasis on chronic MTX therapy Labs: Laboratory Tests 07/04/17 0915: Vancomycin Trough 7.2 Problem List: 1. Bacteremia due to Enterococcus Plan: BASED ON PATIENT FACTORS AND A TROUGH LEVEL TODAY OF 7.2, RECOMMEND CHANGING VANCOMYCIN DOSE TO 1,750MG IV Q12H. WILL OBTAIN TROUGH LEVEL PRIOR TO THE 4TH DOSE ON 07/05/17. PHARMACY WILL CONTINUE TO MONITOR AND ADJUST APPROPRIATE. at 7769
[2017-07-04 20:45] VITALS: BP 147/87
[2017-07-04 22:45] VITALS: BP 147/74
== END 2017-07-04 22:55 | disposition home or self-care (01) ==
LOC: COP 09:01
DX: A41.9 Sepsis, unspecified organism (principal)
CPT/HCPCS: J3370

== ENCOUNTER 2017-07-05 09:12 | Outpatient (CLI) | payer MEDICARE, OTHER ==
[2017-07-05] VITALS (7 sets, daily range): BP systolic 109–163; BP diastolic 62–76
== END 2017-07-05 23:15 | disposition home or self-care (01) ==
LOC: COP 09:12
DX: A41.9 Sepsis, unspecified organism (principal)
CPT/HCPCS: J3370

== ENCOUNTER 2017-07-06 08:45 | Outpatient (CLI) | payer MEDICARE, OTHER ==
--- NOTE | 2017-07-06 09:46 | CONSULT NOTE ---
Pharmacokinetic Consult Date of consult: 07/06/17 Time of consult: 09 Referring provider: DR. MARTELL Reason for consult: VANCOMYCIN TROUGH LEVEL Allergies: Coded Allergies: Sulfa (Sulfonamide Antibiotics) (Mild, 01/16/16) Home Medications: Reported Medications FOLIC ACID (Folic Acid) 1 MG PO DAILY Metoprolol Tartrate (Metoprolol 25MG) 50 MG PO BID NABUMETONE (NABUMETONE 500MG TAB) 1,000 MG PO DAILY TAMSULOSIN HCL (Flomax 0.4MG) 0.4 MG PO BID Oxycodone 10 Mg\Txvgczthhf788 (Oxycodone-Acetaminophen 10-325) 1 TAB PO BIDP PRN PAIN Cetirizine Hcl (Zyrtec) 10 MG PO DAILY Rosuvastatin Calcium (Crestor) 10 MG PO QHS Methotrexate Sodium (Trexall) 25 MG PO SUN ASPIRIN (Aspirin) 81 MG PO DAILY Height (feet): 6 Height (inches): 0.00 Medical History: CAD? Yes Angina: Yes [place]: No Hypertension? Yes Hyperlipidemia? Yes CHF? No COPD? No Asthma? No Anemia? No Hernia? No Thyroid Problems? No Hypothyroidism? No CVA? No Seizures? No Diabetes? No UTI? No Stones? Yes GB Disease: Yes Nephritic Syndrome? No Asplenia? No Hepatitis? No Sickle Cell Disease? No Arthritis? Yes Cataracts? No Glaucoma? No MRSA? No TB? No Cancer? No Additional hx: chronic pain. psoriasis on chronic MTX therapy Labs: Laboratory Tests 07/06/17 0900: Vancomycin Trough 16.7 H Problem List: 1. Bacteremia due to Enterococcus Plan: BASED ON VANCOMYCIN TROUGH LEVEL AND PATIENT FACTORS, RECOMMEND CONTINUING VANCOMYCIN 1750 MG IV Q12H. PHARMACY WILL CONTINUE TO MONITOR AND ADJUST APPROPRIATE. at 0945
--- NOTE | 2017-07-06 09:46 | CONSULT NOTE ---
Pharmacokinetic Consult Date of consult: 07/06/17 Time of consult: 09 Referring provider: DR. MARTELL Reason for consult: VANCOMYCIN TROUGH LEVEL Allergies: Coded Allergies: Sulfa (Sulfonamide Antibiotics) (Mild, 01/16/16) Home Medications: Reported Medications FOLIC ACID (Folic Acid) 1 MG PO DAILY Metoprolol Tartrate (Metoprolol 25MG) 50 MG PO BID NABUMETONE (NABUMETONE 500MG TAB) 1,000 MG PO DAILY TAMSULOSIN HCL (Flomax 0.4MG) 0.4 MG PO BID Oxycodone 10 Mg\Sepkcchjsv658 (Oxycodone-Acetaminophen 10-325) 1 TAB PO BIDP PRN PAIN Cetirizine Hcl (Zyrtec) 10 MG PO DAILY Rosuvastatin Calcium (Crestor) 10 MG PO QHS Methotrexate Sodium (Trexall) 25 MG PO SUN ASPIRIN (Aspirin) 81 MG PO DAILY Height (feet): 6 Height (inches): 0.00 Medical History: CAD? Yes Angina: Yes [place]: No Hypertension? Yes Hyperlipidemia? Yes CHF? No COPD? No Asthma? No Anemia? No Hernia? No Thyroid Problems? No Hypothyroidism? No CVA? No Seizures? No Diabetes? No UTI? No Stones? Yes GB Disease: Yes Nephritic Syndrome? No Asplenia? No Hepatitis? No Sickle Cell Disease? No Arthritis? Yes Cataracts? No Glaucoma? No MRSA? No TB? No Cancer? No Additional hx: chronic pain. psoriasis on chronic MTX therapy Labs: Laboratory Tests 07/06/17 0900: Vancomycin Trough 16.7 H Problem List: 1. Bacteremia due to Enterococcus Plan: BASED ON VANCOMYCIN TROUGH LEVEL AND PATIENT FACTORS, RECOMMEND CONTINUING VANCOMYCIN 1750 MG IV Q12H. PHARMACY WILL CONTINUE TO MONITOR AND ADJUST APPROPRIATE. at 0945
[2017-07-06 10:05] VITALS: BP 116/63
[2017-07-06 11:05] VITALS: BP 117/65
[2017-07-06 12:00] VITALS: BP 118/70
[2017-07-06 22:00] VITALS: BP 128/62
[2017-07-06 23:07] VITALS: BP 129/73
== END 2017-07-06 23:08 | disposition home or self-care (01) ==
LOC: COP 08:45
DX: A41.9 Sepsis, unspecified organism (principal)
CPT/HCPCS: J3370

== ENCOUNTER 2017-07-07 09:23 | Outpatient (CLI) | payer MEDICARE, OTHER ==
[2017-07-07 09:20] VITALS: BP 138/69
[2017-07-07 10:00] VITALS: BP 137/66
[2017-07-07 11:20] VITALS: BP 129/70
[2017-07-07 11:45] VITALS: BP 132/69
[2017-07-07 20:52] VITALS: BP 155/68
== END 2017-07-07 22:35 | disposition home or self-care (01) ==
LOC: COP 09:23
DX: A41.9 Sepsis, unspecified organism (principal)
CPT/HCPCS: J3370

== ENCOUNTER 2017-07-08 08:30 | Outpatient (CLI) | payer MEDICARE, OTHER ==
[2017-07-08 09:15] VITALS: BP 126/63
[2017-07-08 09:45] VITALS: BP 131/65
[2017-07-08 10:15] VITALS: BP 121/63
[2017-07-08 10:45] VITALS: BP 129/68
[2017-07-08 11:10] VITALS: BP 122/66
[2017-07-08 20:30] VITALS: BP 112/78
== END 2017-07-08 22:40 ==
LOC: COP 08:30
DX: A41.9 Sepsis, unspecified organism (principal)
CPT/HCPCS: J3370

== ENCOUNTER 2017-07-09 08:20 | Outpatient (CLI) | payer MEDICARE, OTHER ==
[2017-07-09] VITALS (7 sets, daily range): BP systolic 108–149; BP diastolic 51–76
== END 2017-07-09 22:25 ==
LOC: COP 08:20
DX: A41.9 Sepsis, unspecified organism (principal)
CPT/HCPCS: J3370

== ENCOUNTER 2017-07-10 07:57 | Outpatient (CLI) | payer MEDICARE, OTHER ==
[~2017-07-10] VITALS: Ht 182.9 cm; Wt 129.3 kg
[2017-07-10 09:06] VITALS: BP 160/79
[2017-07-10 09:55] VITALS: BP 134/60
[2017-07-10 11:01] VITALS: BP 138/61
[2017-07-10 20:15] VITALS: BP 143/87
[2017-07-10 21:56] VITALS: BP 131/67
== END 2017-07-10 21:58 | disposition home or self-care (01) ==
LOC: COP 07:57
DX: A41.9 Sepsis, unspecified organism (principal)
CPT/HCPCS: J3370

== ENCOUNTER 2017-07-11 08:03 | Outpatient (CLI) | payer MEDICARE, OTHER ==
[~2017-07-11] VITALS: Ht 182.9 cm; Wt 124.7 kg
[2017-07-11 08:50] VITALS: BP 146/60
[2017-07-11 11:02] VITALS: BP 136/73
[2017-07-11 20:24] VITALS: BP 160/79
[2017-07-11 22:00] VITALS: BP 149/69
== END 2017-07-11 22:05 | disposition home or self-care (01) ==
LOC: COP 08:03
DX: A41.9 Sepsis, unspecified organism (principal)
CPT/HCPCS: J3370

== ENCOUNTER 2017-07-12 08:25 | Outpatient (CLI) | payer MEDICARE, OTHER ==
[2017-07-12 08:49] VITALS: BP 153/68
[2017-07-12 09:19] VITALS: BP 146/66
[2017-07-12 09:49] VITALS: BP 136/68
[2017-07-12 10:19] VITALS: BP 139/67
[2017-07-12 10:55] VITALS: BP 149/67
[2017-07-12 20:10] VITALS: BP 142/68
== END 2017-07-12 23:10 | disposition home or self-care (01) ==
LOC: COP 08:25
DX: A41.9 Sepsis, unspecified organism (principal)
CPT/HCPCS: J3370

== ENCOUNTER 2017-07-13 08:30 | Outpatient (CLI) | payer MEDICARE, OTHER ==
[2017-07-13 09:06] LABS: BUN 14 mg/dL (7-18)
[2017-07-13 09:17] LABS: GFR (ESTIMATED) 75 ML/MIN (>60)
--- NOTE | 2017-07-13 09:27 | CONSULT NOTE ---
Pharmacokinetic Consult Date of consult: 07/13/17 Time of consult: 923 Referring provider: DR. MARTELL Reason for consult: VANCOMYCIN TROUGH LEVEL Allergies: Coded Allergies: Sulfa (Sulfonamide Antibiotics) (Mild, 01/16/16) Home Medications: Reported Medications FOLIC ACID (Folic Acid) 1 MG PO DAILY Metoprolol Tartrate (Metoprolol 25MG) 50 MG PO BID NABUMETONE (NABUMETONE 500MG TAB) 1,000 MG PO DAILY TAMSULOSIN HCL (Flomax 0.4MG) 0.4 MG PO BID Oxycodone 10 Mg\[id number] (Oxycodone-Acetaminophen 10-325) 1 TAB PO BIDP PRN PAIN Cetirizine Hcl (Zyrtec) 10 MG PO DAILY Rosuvastatin Calcium (Crestor) 10 MG PO QHS Methotrexate Sodium (Trexall) 25 MG PO SUN ASPIRIN (Aspirin) 81 MG PO DAILY Height (feet): 6 Height (inches): 0.00 Medical History: CAD? Yes Angina: Yes [place]: No Hypertension? Yes Hyperlipidemia? Yes CHF? No COPD? No Asthma? No Anemia? No Hernia? No Thyroid Problems? No Hypothyroidism? No CVA? No Seizures? No Diabetes? No UTI? No Stones? Yes GB Disease: Yes Nephritic Syndrome? No Asplenia? No Hepatitis? No Sickle Cell Disease? No Arthritis? Yes Cataracts? No Glaucoma? No MRSA? No TB? No Cancer? No Additional hx: chronic pain. psoriasis on chronic MTX therapy Labs: Laboratory Tests 07/13/17 0849: Sodium 139, Potassium 3.7, Chloride 104, Carbon Dioxide 26, BUN 14, Creatinine 1.0, Estimated GFR (MDRD) 75, Glucose 150 H, Calcium 8.9, Vancomycin Trough 16.7 H Problem List: 1. Bacteremia due to Enterococcus Plan: BASED ON VANCOMYCIN TROUGH LEVEL, RECOMMEND CONTINUING VANCOMYCIN 1750 MG IV Q12H. at 0965
--- NOTE | 2017-07-13 09:27 | CONSULT NOTE ---
Pharmacokinetic Consult Date of consult: 07/13/17 Time of consult: 923 Referring provider: DR. MARTELL Reason for consult: VANCOMYCIN TROUGH LEVEL Allergies: Coded Allergies: Sulfa (Sulfonamide Antibiotics) (Mild, 01/16/16) Home Medications: Reported Medications FOLIC ACID (Folic Acid) 1 MG PO DAILY Metoprolol Tartrate (Metoprolol 25MG) 50 MG PO BID NABUMETONE (NABUMETONE 500MG TAB) 1,000 MG PO DAILY TAMSULOSIN HCL (Flomax 0.4MG) 0.4 MG PO BID Oxycodone 10 Mg\[id number] (Oxycodone-Acetaminophen 10-325) 1 TAB PO BIDP PRN PAIN Cetirizine Hcl (Zyrtec) 10 MG PO DAILY Rosuvastatin Calcium (Crestor) 10 MG PO QHS Methotrexate Sodium (Trexall) 25 MG PO SUN ASPIRIN (Aspirin) 81 MG PO DAILY Height (feet): 6 Height (inches): 0.00 Medical History: CAD? Yes Angina: Yes [place]: No Hypertension? Yes Hyperlipidemia? Yes CHF? No COPD? No Asthma? No Anemia? No Hernia? No Thyroid Problems? No Hypothyroidism? No CVA? No Seizures? No Diabetes? No UTI? No Stones? Yes GB Disease: Yes Nephritic Syndrome? No Asplenia? No Hepatitis? No Sickle Cell Disease? No Arthritis? Yes Cataracts? No Glaucoma? No MRSA? No TB? No Cancer? No Additional hx: chronic pain. psoriasis on chronic MTX therapy Labs: Laboratory Tests 07/13/17 0849: Sodium 139, Potassium 3.7, Chloride 104, Carbon Dioxide 26, BUN 14, Creatinine 1.0, Estimated GFR (MDRD) 75, Glucose 150 H, Calcium 8.9, Vancomycin Trough 16.7 H Problem List: 1. Bacteremia due to Enterococcus Plan: BASED ON VANCOMYCIN TROUGH LEVEL, RECOMMEND CONTINUING VANCOMYCIN 1750 MG IV Q12H. at 0963
[2017-07-13 09:42] VITALS: BP 148/75
[2017-07-13 10:35] VITALS: BP 141/66
[2017-07-13 12:01] VITALS: BP 142/72
[2017-07-13 20:18] VITALS: BP 148/92
[2017-07-13 20:25] VITALS: BP 148/92
[2017-07-13 22:40] VITALS: BP 148/92
== END 2017-07-13 22:40 | disposition home or self-care (01) ==
LOC: COP 08:30
PROVIDERS: Internal Medicine Adolescent Medicine
DX: A41.9 Sepsis, unspecified organism (principal)
CPT/HCPCS: J3370

== ENCOUNTER 2017-07-14 10:05 | Outpatient (CLI) | payer MEDICARE, OTHER ==
[2017-07-14] VITALS (7 sets, daily range): BP systolic 101–151; BP diastolic 61–76
== END 2017-07-14 23:05 ==
LOC: COP 10:05
DX: A41.9 Sepsis, unspecified organism (principal)
CPT/HCPCS: J3370

== ENCOUNTER 2017-07-15 09:25 | Outpatient (CLI) | payer MEDICARE, OTHER ==
[2017-07-15 09:53] VITALS: BP 157/67
[2017-07-15 10:23] VITALS: BP 152/64
[2017-07-15 10:53] VITALS: BP 151/62
[2017-07-15 11:23] VITALS: BP 149/62
[2017-07-15 12:05] VITALS: BP 150/61
== END 2017-07-15 12:10 | disposition home or self-care (01) ==
LOC: COP 09:25
DX: A41.9 Sepsis, unspecified organism (principal)
CPT/HCPCS: G0463; J3370